=== PATIENT | female | born 1995 | race Caucasian/White ===

== ENCOUNTER 2017-06-15 13:05 | Outpatient (CLI) | payer MEDICAID ==
[2017-06-15 13:34] LABS: APPEARANCE,URINE CLOUDY; BILIRUBIN,URINE NEGATIVE (NEGATIVE); GLUCOSE, URINE NEGATIVE (NEGATIVE); KETONES,URINE NEGATIVE (NEGATIVE); LEUKOCYTE ESTERASE,URINE MODERATE (NEGATIVE); NITRITE,URINE NEGATIVE (NEGATIVE); PROTEIN,URINE 30 mg/dL (NEGATIVE); URINE SPECIFIC GRAVITY 1.021; UROBILINOGEN,URINE NEGATIVE mg/dL (<2.0)
[2017-06-15 14:04] LABS: URINE BARBITURATES SCREEN NEGATIVE; URINE METHADONE SCREEN NEGATIVE; URINE OPIATES LOW NEGATIVE; URINE PHENCYCLIDINE SCREEN NEGATIVE
== END 2017-06-15 16:15 | disposition home or self-care (01) ==
LOC: LC 13:05
PROVIDERS: ATTEND Student in an Organized Health Care Education/Training Program
PROC: 4A1HXCZ Monitoring of Products of Conception, Cardiac Rate, External Approach (ICD-10-PCS; principal; 2017-06-15)
DX: O47.1 False labor at or after 37 completed weeks of gestation (principal); Z3A.39 39 weeks gestation of pregnancy
CPT/HCPCS: 59025; 80307; 81005

== ENCOUNTER 2017-06-16 07:36 | Inpatient (IN) | payer MEDICAID ==
--- NOTE | 2017-06-16 07:45 | Non Stress Test Report ---
Non Stress Test Datetime Report Generated by CPN: 06/16/2017 07:45 DEMOGRAPHIC EGA NST: 39.3 INDICATION Indication for Study: Ordered by Provider MONITORING Monitor Explained: Monitor Explained; Test Explained; Patient Verbalized Understanding Time on Monitor: 06/15/2017 13:29 Time off Monitor: 06/15/2017 13:51 NST Duration: 22 NST INTERVENTIONS NST Interventions: PO Hydration; Reposition Patient Physician Notified NST: H. Taran, CNM BABY A: [id number] BABY A Movement : Present Contraction Frequency : rare FHR Baseline : 135 Accelerations : 15X15 Decelerations : None Variability : Moderate 6-25bpm NST Review: Meets Criteria for Reactive NST NST Review and Verified By : RAJINDER Menjivar Results: Reactive NST REPORT Report Trigger: Send Report
[2017-06-16] MEDS ORDERED: RINGERS SOLUTION,LACTATED 1,000 ML IV ONE (08:04)
[2017-06-16] MEDS ORDERED: RINGERS SOLUTION,LACTATED 1,000 ML IV PRN (08:04)
[2017-06-16 08:41] LABS: HEMATOCRIT 35.5 % (36.0-47.0); HEMOGLOBIN 12.3 g/dL (12.0-15.5); HGB HCT DIFFERENCE 1.4; MEAN CORPUSCULAR HEMOGLOBIN 30.8 pg (27.0-33.4); MEAN CORPUSCULAR HGB CONC 34.6 g/dL (32.0-36.0); MEAN CORPUSCULAR VOLUME 89 fl (80-97); RED BLOOD COUNT 3.98 10^6/uL (3.72-5.28); WHITE BLOOD COUNT 15.3 10^3/uL (4.0-10.5)
[2017-06-16] MEDS ORDERED: EPHEDRINE SULFATE INJ 50 MG/1 ML AMPULE ONE (08:47)
[2017-06-16] MEDS ORDERED: FENTANYL/BUPIVACAINE/NS/PF 200 MCG/100 ML RTUINJ EPI ONE (08:47)
[2017-06-16] MEDS ORDERED: BUPIVACAINE HCL 0.25 % INJ/PF (2.5 MG/1 ML) 30 ML VIAL ONE (08:47)
--- NOTE | 2017-06-16 09:35 | L&D Progress Notes ---
PROGRESS NOTES Datetime Report Generated by CPN: 06/16/2017 09:35 PROGRESS NOTE Impression: Normal Progression of Labor; Reassuring Heart Rate Procedures: Artificial ROM; Sterile Vag Exam Plan: Continue Present Management Informed Consent Obtained: Vaginal Delivery Vital Signs : Reviewed Comment: pt comfortable with epidural AROM, light mec fluid Continue present managment Anticipate VAGINAL EXAM Dilatation: 8 Dilatation: 7 Effacement: 100 Effacement: 100 Station: 0 Station: 0 Contractions: 2-3 Contractions: every 5 min MEMBRANES Membranes: Ruptured Membranes: Intact Amniotic Fluid Color: Meconium, Light FETUS A FHR - Baseline: 145 Monitoring: External US Variability: Moderate 6-25bpm Accelerations: 15X15 Decelerations: None FHR Category: Category I Estimated Weight (gm): 3800 Presentation: Vertex SIGNATURE SIGNATURE: [id number] SIGNATURE: [id number] Assignment: Brianna Brown MD Signature: with User ID: [email or web address] : with User ID: [email or web address]
[2017-06-16] MEDS ORDERED: LIDOCAINE 1% INJ-PF (10 MG/ML) 30 ML SDV ONE (11:22)
[2017-06-16] MEDS ORDERED: MISOPROSTOL 0.2 MG TABLET ONE (11:22)
[2017-06-16] MEDS ORDERED: OXYTOCIN/NORMAL SALINE 20 UNIT/1,000 ML RTUINJ ONE (11:22)
[2017-06-16] MEDS ORDERED: ACETAMINOPHEN WITH CODEINE #3 TABLET PO PRN (13:15)
[2017-06-16] MEDS ORDERED: MEASLES,MUMPS&RUBELLA VACC/PF 0.5 ML VIAL SUBCUT PRN (13:15)
[2017-06-16] MEDS ORDERED: OXYTOCIN/NORMAL SALINE 20 UNIT/1,000 ML RTUINJ IV PRN (13:15)
[2017-06-16] MEDS ORDERED: ZOLPIDEM TARTRATE 5 MG TABLET PO PRN (13:15)
[2017-06-16] MEDS ORDERED: DIPH/PERTUSS(ACELL)/TETANUS VAC/PF 0.5 ML SYR (>=10YO) IM PRN (13:15)
[2017-06-16] MEDS ORDERED: DIBUCAINE 1% OINTMENT 28 GM TP PRN (13:15)
--- NOTE | 2017-06-16 15:05 | Admission Physical ---
Datetime Report Generated by CPN: 06/16/2017 15:04 CURRENT ADMISSION Hx Assessment: The History has been Reviewed and is Current Chief Complaint: Uterine Contractions Indication for Induction: Not Applicable Admit Plan: Admit to Unit; Initiate Labor Protocol ALLERGIES Medication Allergies: Yes Medication Allergies: No Known Allergies (06/16/2017) Medication Allergies: Nickel Latex: No Latex Allergies Food Allergies: None Environmental Allergies: Nickel - rash OBSTETRICAL HISTORY EDC: 06/19/2017 00:00 : 1 Para: 0 Term: 0 : 0 SAB: 0 IAB: 0 Ectopic: 0 Livin Cesareans: 0 VBACs: 0 Multiple Births: 0 Gestational Diabetes: No Rh Sensitization: No Incompetent Cervix: No MATTHEW: No Infertility: No ART Treatment: No Uterine Anomaly: No IUGR: No Hx Previous C/S: No Macrosomia: No Hx Loss/Stillborn: No PIH: No Hx : No Placenta Previa/Abruption: No Depression/PP Depression: No PTL/PROM: No Post Hemorrhage: No Current Procedures: Ultrasound Obstetrical History Comments: G1 - current - FOB not involved SEE RECORDS Alcohol: No Marijuana : No Cocaine: No Other Illicit Drugs: No Cigarettes: Former Smoker. [id number] MEDICAL HISTORY Diabetes: No Blood Transfusion: No Pulmonary Disease (Asthma, TB): Yes Breast Disease: No Hypertension: No Medical Assembly Surgery: No Heart Disease: No Hosp/Surgery: No Autoimmune Disorder: No Anesthetic Complications: No Kidney Disease: No Abnormal Pap Smear: No Neuro/Epilepsy: No Psychiatric Disorders: No Other Medical Diseases: No Hepatitis/Liver Disease: No Significant Family History: No Varicosities/Phlebitis: No Trauma/Violence : No Thyroid Dysfunction: No Medical History Comments: Hx Asthma GERD INFECTIOUS HISTORY Gonorrhea: No Genital Herpes: No Chlamydia: No Tuberculosis: No Syphilis: No Hepatitis: No HIV/AIDS Exposure: No Rash or Viral Illness: No HPV: No PHYSICAL EXAM General: Normal HEENT: Normal Neurologic: Normal Thyroid: Deferred Heart: Normal Lungs: Normal Breast: Normal Back: Normal Abdomen: Normal Genitourinary Exam: Normal Extremities: Normal DTRs: Normal Pelvic Type: Adequate Vital Signs: Reviewed VAGINAL EXAM Dilatation: 8 Dilatation: 7 Effacement: 100 Effacement: 100 Station: 0 Station: 0 Contraction Comments: 2-3 Contraction Comments: every 5 min MEMBRANES Membranes: Ruptured Membranes: Intact Amniotic Fluid Color: Meconium, Light FETUS A EGA: 39.4 Monitoring: External US FHR- Baseline: 135 Variability: Moderate 6-25bpm Accelerations: 15X15 Decelerations: None FHR Category: Category I Estimated Weight (gm): 3800 Presentation: Vertex Admit Comment: ctx all night long, denies lof, vb, states active baby. Known RH negative, received rhogam. care otherwise uncomplicated. Remote hx of asthma Admit to L _ D Pt may have epidural Plan AROM when epidural Anticipate PLANS FOR LABOR AND DELIVERY Labor and Delivery: None Pain Management: Epidural Feeding Preference: Breast Benefit of Breast Feed Discussed: Yes Circumcision: N/A INFORMED CONSENT Informed Consent Obtained: Vaginal Delivery Assignment: Brianna Brown MD Signature: with User ID: [email or web address] : with User ID: [email or web address]
[2017-06-16] MEDS: BENZOCAINE/MENTHOL AEROSOL SPRAY 56 ML TOP PRN (16:20)
[2017-06-16] MEDS: IBUPROFEN 800 MG TABLET PO SCH ×2 (16:26→21:10)
[2017-06-16] MEDS ORDERED: ENOXAPARIN SODIUM INJ 40 MG/0.4 ML DISP.SYRIN SUBCUT ONE (16:30)
--- NOTE | 2017-06-16 16:34 | Delivery Summary ---
Del Sum A-C Datetime Report Generated by CPN: 06/16/2017 16:33 DELIVERY PERSONNEL DELIVERY PERSONNEL: [id number];[id number] Delivery Doctor:: Shonda WILIAM Chirinos Labor and Delivery Nurse:: Maria Del Rosario SalcedoRAJINDER MATERNAL INFORMATION Delivery Anesthesia: Epidural Medications After Delivery: Pitocin Drip 20 Units/1000ml NSS Estimated Blood Loss (ml): 200 Maternal Complications: None Provider Comments: of viable female , head, shoulders, and body delivered without difficulty, infant with spontaneous cry and respirations to maternal abodmen, cord clamped X2, infant cut free after delay. Spontaneous delivery of placenta via ruvalcaba mechanism, appears intact, 3 VC. Vagina and perineum inspected, repaired as above, bilateral superficial periuretherals not bleeding, not repaired. Hemostasis acheived with external fundal massage and IV pitocin. Mother and infant in stable condition. Routine pp care. LABOR SUMMARY EDC: 06/19/2017 00:00 No. Babies in Womb: 1 Attempted: No Labor Anesthesia: Epidural LABOR INFORMATION Reason for Induction: Not Applicable Onset of Labor: 06/16/2017 04:00 Complete Dilatation: 06/16/2017 11:57 Oxytocin: N/A Group B Beta Strep: Negative Steroids Given: None Reason Steroids Not Administered: Not Applicable MEMBRANES Membranes Rupture Method: Artificial Rupture of Membranes: 06/16/2017 09:20 Length of Rupture (hr): 2.98 Amniotic Fluid Color: Light Meconium Amniotic Fluid Amount: Moderate Amniotic Fluid Odor: Normal STAGES OF LABOR Stage 1 hr: 7 Stage 1 min: 57 Stage 2 hr: 0 Stage 2 min: 22 Stage 3 hr: 0 Stage 3 min: 14 Total Time in Labor hr: 8 Total Time in Labor min: 33 VAGINAL DELIVERY Episiotomy: None Laceration Extension: N/A Laceration Type: Vaginal Laceration Repair: Yes Laceration Repair Note: 2nd degree repaired with 2-0 chromic using epidural anesthesia Sponge Count Correct: Yes Sharps Count Correct: Yes CSECTION DELIVERY Primary Indication: N/A Secondary Indication: N/A CSection Incidence: N/A Labor: N/A Elective: N/A CSection Incision: N/A BABY A INFORMATION Delivery Date/Time: 06/16/2017 12:19 Method of Delivery: Vaginal Born in Route : No : N/A Forceps: N/A Vacuum Extraction: N/A Shoulder Dystocia : No PRESENTATION/POSITION BABY A Presentation: Cephalic Cephalic Presentation: Vertex Vertex Position: Right Occipital Anterior Breech Presentation: N/A PLACENTA INFORMATION BABY A Placenta Delivery Time : 06/16/2017 12:33 Placenta Method of Delivery: Spontaneous Placenta Status: Delivered SCORES BABY A Heart Rate 1 min: >100 bpm Resp Effort 1 min: Good Cry Reflex Irritability 1 min: Cough or Sneeze or Pulls Away Muscle Tone 1 min: Active Motion Color 1 min: Body Vansant, Extremities Blue Resuscitation Effort 1 min: Tactile Stimulation SCORE 1 MIN: 9 Heart Rate 5 min: >100 bpm Resp Effort 5 min: Good Cry Reflex Irritability 5 min: Cough or Sneeze or Pulls Away Muscle Tone 5 min: Active Motion Color 5 min: Completely Vansant Resuscitation Effort 5 min: N/A SCORE 5 MIN: 10 INFANT INFORMATION BABY A Gestational Age at Delivery: 39.4 Gestational Status: Full Term- 39- 40.6 Weeks Outcome : Liveborn Infant Condition : Stable Infant Sex: Female IDENTIFICATION BABY A Infant Verification Date/Time: 06/16/2017 15:28 ID Band Number: [id number] Mother's Name Verified: Yes RN Verifying Infant: B Baidy RN/ H Rios RN WEIGHT/LENGTH BABY A Birthweight (gm): 3250 Infant Weight (lb): 7 Infant Weight (oz): 3 Infant Length (in): 19.50 Infant Length (cm): 49.53 CORD INFORMATION BABY A No. Cord Vessels: 3 Nuchal Cord : N/A Cord Blood Taken: Yes-For Eval (Mom's Blood Type - or O+) Suction: None ASSESSMENT BABY A Complications: None Physical Findings at Delivery: Within Normal Limits Infant Respirations: Appears Normal Skin to Skin: Yes Skin to Skin Time (min): 90 Special Effects Specialist/ALS Called : No Infant Care By: B Baidy RN Transferred To: Remains with Mother BABY B INFORMATION : N/A SIGNATURES Assignment: Brianna Brown MD Signature: with User ID: [email or web address] : with User ID: [email or web address]
[2017-06-16 16:56] LABS: APPEARANCE,URINE SLIGHTLY-CLOUDY; BILIRUBIN,URINE NEGATIVE (NEGATIVE); GLUCOSE, URINE NEGATIVE (NEGATIVE); KETONES,URINE NEGATIVE (NEGATIVE); LEUKOCYTE ESTERASE,URINE MODERATE (NEGATIVE); NITRITE,URINE NEGATIVE (NEGATIVE); PROTEIN,URINE 100 mg/dL (NEGATIVE); URINE SPECIFIC GRAVITY 1.006; UROBILINOGEN,URINE NEGATIVE mg/dL (<2.0)
[2017-06-16] MEDS: DOCUSATE SODIUM 100 MG CAPSULE PO SCH (17:10)
[2017-06-16] MEDS: FERROUS SULFATE 325 MG TABLET PO SCH (17:10)
[2017-06-16 17:13] LABS: URINE BARBITURATES SCREEN NEGATIVE; URINE METHADONE SCREEN NEGATIVE; URINE OPIATES LOW NEGATIVE; URINE PHENCYCLIDINE SCREEN NEGATIVE
[2017-06-16] MEDS: ACETAMINOPHEN WITH CODEINE #3 TABLET PO PRN (20:25)
[2017-06-17] MEDS: IBUPROFEN 800 MG TABLET PO SCH ×3 (05:16→21:00)
[2017-06-17 08:14] LABS: HEMATOCRIT 32.9 % (36.0-47.0); HEMOGLOBIN 11.7 g/dL (12.0-15.5); HGB HCT DIFFERENCE 2.2; MEAN CORPUSCULAR HEMOGLOBIN 31.7 pg (27.0-33.4); MEAN CORPUSCULAR HGB CONC 35.5 g/dL (32.0-36.0); MEAN CORPUSCULAR VOLUME 89 fl (80-97); RED BLOOD COUNT 3.68 10^6/uL (3.72-5.28); RED CELL DISTRIBUTION WIDTH 13.9 % (11.5-14.0); WHITE BLOOD COUNT 12.5 10^3/uL (4.0-10.5)
[2017-06-17] MEDS: FERROUS SULFATE 325 MG TABLET PO SCH ×2 (10:51→17:09)
[2017-06-17] MEDS: SENNOSIDES/DOCUSATE 8.6-50 MG 1 EACH TABLET PO SCH (10:51)
[2017-06-17] MEDS: PRENATAL VITAMIN W-O CA NO5/FE FUMARATE/FA CAPSULE PO SCH (10:51)
[2017-06-17] MEDS: DOCUSATE SODIUM 100 MG CAPSULE PO SCH ×2 (10:52→17:09)
[2017-06-17] MEDS: ENOXAPARIN SODIUM INJ 40 MG/0.4 ML DISP.SYRIN SUBCUT SCH (10:52)
--- NOTE | 2017-06-17 14:24 | PDOC PROGRESS REPORT ---
Subjective-OB Subjective: Post Delivery Day: 1 21 year old. Denies any needs at this time, states lochia is stable, pain well controlled, voiding without difficulty. Physical Exam (OB) Vital Signs: Temp Pulse Resp BP Pulse Ox 98.2 F 83 18 136/76 H 100 06/17/17 08:08 06/17/17 08:08 06/17/17 08:08 06/17/17 08:08 06/17/17 08:08 Intake & Output 06/16/17 06/17/17 06/18/17 06:59 06:59 06:59 Weight 73.55 kg - PIH/Pre-Eclampsia DTR's: 2 + Clonus: Negative Headache: Absent Epigastric Pain: No Visual Changes: No - Lochia Lochia Amount: Small 10-25 ml Lochia Color: Rubra/Red - Abdomen Description: Soft Hernia Present: No Fundal Description: Firm, Midline Fundal Height: u/u - u/2 Objective-Diagnostic Laboratory: 06/17/17 07:55 06/16/17 06/17/17 16:18 07:55 WBC 12.5 H RBC 3.68 L Hgb 11.7 L Hct 32.9 L MCV 89 MCH 31.7 MCHC 35.5 RDW 13.9 Plt Count 170 Urine Color RED Urine Appearance SLIGHTLY-CLOUDY Urine pH 6.0 Ur Specific [place] 1.006 Urine Protein 100 H Urine Glucose (UA) NEGATIVE Urine Ketones NEGATIVE Urine Blood LARGE H Urine Nitrite NEGATIVE Ur Leukocyte Esterase MODERATE H Assessment and Plan(PN) - Assessment and Plan (1) Vaginal delivery Is this a current diagnosis for this admission?: Yes Plan: routine pp care - Time Spent with Patient Time with patient: Less than 15 minutes Critical Time spent with patient: Less than 15 minutes Medications reviewed and adjusted accordingly: Yes - Disposition Anticipated Discharge: Home Within: within 24 hours
[2017-06-17] MEDS: ACETAMINOPHEN WITH CODEINE #3 TABLET PO PRN (19:01)
[2017-06-17] MEDS: BENZOCAINE/MENTHOL AEROSOL SPRAY 56 ML TOP PRN (20:58)
[2017-06-18] MEDS: ACETAMINOPHEN WITH CODEINE #3 TABLET PO PRN ×2 (00:18→08:08)
[2017-06-18] MEDS: IBUPROFEN 800 MG TABLET PO SCH (05:31)
[2017-06-18 08:14] VITALS: BP 129/64
[2017-06-18] MEDS: ENOXAPARIN SODIUM INJ 40 MG/0.4 ML DISP.SYRIN SUBCUT SCH (09:36)
[2017-06-18] MEDS: DOCUSATE SODIUM 100 MG CAPSULE PO SCH (09:38)
[2017-06-18] MEDS: SENNOSIDES/DOCUSATE 8.6-50 MG 1 EACH TABLET PO SCH (09:38)
[2017-06-18] MEDS: PRENATAL VITAMIN W-O CA NO5/FE FUMARATE/FA CAPSULE PO SCH (09:38)
[2017-06-18] MEDS: FERROUS SULFATE 325 MG TABLET PO SCH (09:39)
--- NOTE | 2017-06-18 10:19 | PDOC DISCHARGE SUMMARY ---
Final Diagnosis Discharge Date: 06/18/17 - Final Diagnosis (1) Vaginal delivery Is this a current diagnosis for this admission?: Yes Discharge Data - Discharge Medication Home Medications: Cetirizine HCl [Zyrtec 10 mg Tablet] 1 tab PO DAILY 06/16/17 [id number]/FA/Omega3/Dha/Fish Oil [ Gummies] 1 each PO DAILY 06/16/17 Ranitidine HCl [Zantac 150 mg Tablet] 150 mg PO BID 06/16/17 Reason(s) for Admission: Onset of Labor Procedures: NST Intrapartum Procedure(s): Spontaneous Vaginal Delivery Complication(s): Laceration-Vaginal Laceration-Degree: 2nd - Diagnosis Test Laboratory: Temp Pulse Resp BP Pulse Ox 98.2 F 74 14 129/64 H 100 06/18/17 09:46 06/18/17 09:46 06/18/17 09:46 06/18/17 07:43 06/18/17 09:46 06/16/17 06/16/17 06/17/17 08:32 16:18 07:55 RBC 3.98 3.68 L Hgb 12.3 11.7 L Hct 35.5 L 32.9 L Urine Opiates Screen NEGATIVE - Discharge information/Instructions Discharge Activity: Activity As Tolerated, Balance Activity w/Rest, No Lifting Over 10 Pounds, No Lifting/Push/Pulling, Pelvic Rest, No tub bath Discharge Diet: Regular Disposition: HOME, SELF-CARE Follow up with: [facility] in: 4, Weeks
== END 2017-06-18 13:00 | disposition home or self-care (01) | DRG 775 ==
LOC: LC 07:36 → EEVIPCON 08:02 → LR 08:02 → 2S 14:50
PROVIDERS: ADMIT Obstetrics & Gynecology; ATTEND Obstetrics & Gynecology
PROC: 10E0XZZ Delivery of Products of Conception, External Approach (ICD-10-PCS; principal; 2017-06-16)
PROC: 0KQM0ZZ Repair Perineum Muscle, Open Approach (ICD-10-PCS; 2017-06-16)
PROC: 10907ZC Drainage of Amniotic Fluid, Therapeutic from Products of Conception, Via Natural or Artificial Opening (ICD-10-PCS; 2017-06-16)
PROC: 4A1HXCZ Monitoring of Products of Conception, Cardiac Rate, External Approach (ICD-10-PCS; 2017-06-16)
PROC: 3E0234Z Introduction of Serum, Toxoid and Vaccine into Muscle, Percutaneous Approach (ICD-10-PCS; 2017-06-18)
DX: O77.0 Labor and delivery complicated by meconium in amniotic fluid (principal); O70.1 Second degree perineal laceration during delivery; O99.513 Diseases of the respiratory system complicating pregnancy, third trimester; J45.909 Unspecified asthma, uncomplicated; Z87.891 Personal history of nicotine dependence; Z23 Encounter for immunization; Z3A.39 39 weeks gestation of pregnancy; Z37.0 Single live birth
CPT/HCPCS: 36415; 80307; 81005; 85027; 86592; 86850; 86900; 86901; 90707; J1650; J2590; J3490